=== PATIENT | female | born 2000 | race African-American/Black ===

== ENCOUNTER 2021-05-10 10:09 | Emergency (ER) | payer OTHER ==
[2021-05-10 10:32] LABS: BILIRUBIN,URINE NEGATIVE (NEGATIVE); GLUCOSE, URINE (UA) NEGATIVE (NEGATIVE); KETONES,URINE (UA) NEGATIVE (NEGATIVE); LEUKOCYTE ESTERASE, URINE NEGATIVE (NEGATIVE); NITRITE,URINE NEGATIVE (NEGATIVE); OCCULT BLOOD,URINE LARGE (NEGATIVE); PROTEIN,URINE NEGATIVE (NEGATIVE); UROBILINOGEN,URINE 0.2 (NORMAL) E.U./dL (NORMAL)
[2021-05-10 10:37] LABS: CLARITY,URINE CLEAR (CLEAR); HCG UR QUAL NEGATIVE
[2021-05-10 10:39] LABS: BASOPHILS % (AUTO) 0.5 %; EOSINOPHILS # (AUTO) 0.1 10^3/uL (0.0-0.7); EOSINOPHILS % (AUTO) 1.3 %; HCT - HEMATOCRIT 39.4 % (37.0-47.0); HGB - HEMOGLOBIN 12.9 g/dL (12.0-16.0); LYMPHOCYTES # (AUTO) 1.5 10^3/uL (1.5-3.5); LYMPHOCYTES % (AUTO) 39.7 %; MEAN CORPUSCULAR HEMOGLOBIN 30.5 pg (27.0-31.0); MEAN CORPUSCULAR HGB CONC 32.7 g/dL (32.0-36.0); MEAN CORPUSCULAR VOLUME 93.1 fL (81.0-99.0); MEAN PLATELET VOLUME 9.9 fL (7.9-10.8); MONOCYTES # (AUTO) 0.3 10^3/uL (0.0-1.0); MONOCYTES % (AUTO) 9.1 %; NEUTROPHILS # (AUTO) 1.8 10^3/uL (1.5-6.6); NEUTROPHILS % (AUTO) 49.1 %; PLT - PLATELET COUNT 239 10^3/uL (130-450); RED BLOOD COUNT 4.23 10^6/uL (4.20-5.40); RED CELL DISTRIBUTION WIDTH 13.7 % (12.0-15.0); WHITE BLOOD COUNT 3.8 x10^3/uL (4.8-10.8)
[2021-05-10 10:44] LABS: BACTERIA,URINE None Seen /HPF (None Seen); RBC,URINE 0-5 /HPF (0-5); SQUAMOUS EPITHELIAL CELL,UR RARE Squamous (<= Few); WBC,URINE 0-3 /HPF (0-5)
[2021-05-10 10:56] LABS: ALBUMIN 3.9 g/dL (3.2-5.5); ALBUMIN/GLOBULIN RATIO 1.4 (1.0-2.2); CALCIUM 8.8 mg/dL (8.5-10.3); CREATININE 0.8 mg/dL (0.4-1.0); POTASSIUM 4.3 mmol/L (3.5-5.0); TOTAL PROTEIN 6.7 g/dL (6.7-8.2)
[2021-05-10] MEDS ORDERED: MAG HYDROX/AL HYDROX/SIMETH 30 ML UDC PO STA (11:21)
[2021-05-10] MEDS ORDERED: LIDOCAINE VISCOUS 2% 15 ML UDC MM STA (11:21)
--- NOTE | 2021-05-10 11:25 | ED Physician Documentation ---
History of Present Illness - Stated complaint Stated Complaint: ABD PX/NAUSEA - Chief complaint Chief Complaint: Abd Pain - History obtained from History obtained from: Patient - Additonal information Additional information: The patient comes to the emergency department chief complaint of upper abdominal pain that occurs when she is on her period. She states that she previously just had a low abdominal cramps, but over the last couple months, she has noticed that she gets a deep, superior epigastric pain and nausea while on her period. She states that in between, she does not have any pain there at all and denies any nausea or pain in association with eating. She states her periods last a bit longer now, 7 days where it used to be 4 days. 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 The patient has been thinking about going off the control pills, because she thinks it may be partly responsible for her symptoms. The patient does use ibuprofen for her cramps, but states that the epigastric pain starts before she begins using ibuprofen. No other complaints at this time. Review of Systems Ten Systems: 10 systems reviewed and negative Constitutional: reports: Reviewed and negative Eyes: reports: Reviewed and negative Ears: reports: Reviewed and negative Nose: reports: Reviewed and negative Throat: reports: Reviewed and negative Cardiac: reports: Reviewed and negative Respiratory: reports: Reviewed and negative GI: reports: Abdominal Pain, Nausea, Vomiting : reports: Reviewed and negative Skin: reports: Reviewed and negative Musculoskeletal: reports: Reviewed and negative Neurologic: reports: Reviewed and negative Psychiatric: reports: Reviewed and negative Endocrine: reports: Reviewed and negative Immunocompromised: reports: Reviewed and negative PD PAST MEDICAL HISTORY - Past Medical History Past Medical History: Yes Cardiovascular: None Respiratory: None Neuro: None Endocrine/Autoimmune: None GI: None FERRY ENGINEER: None : None HEENT: None Psych: None Musculoskeletal: None Derm: None - Past Surgical History Past Surgical History: Yes /FERRY ENGINEER: Breast reduction - Present Medications Home Medications: Ambulatory Orders Medication Instructions Recorded Confirmed Levonorgestrel [Kyleena] 1 insert .ROUTE PRN PRN 05/10/21 05/10/21 Ondansetron Odt [Zofran] 4 mg TL Q6H PRN #10 tablet 05/10/21 - Allergies Allergies/Adverse Reactions: Allergies Allergy/AdvReac Type Severity Reaction Status Date / Time No Known Drug Allergies Allergy Verified 05/10/21 10:20 - Social History Does the pt smoke?: No Smoking Status: Never smoker PD ED PE NORMAL - Vitals Vital signs reviewed: Yes - General General: Alert and oriented X 3, No acute distress, Well developed/nourished - HEENT HEENT: Atraumatic, PERRL, EOMI, Moist mucous membranes - Cardiac Cardiac: RRR, No murmur, Strong equal pulses - Respiratory Respiratory: No respiratory distress, Clear bilaterally - Abdomen Abdomen: Soft, Non distended, Other (Epigastric tenderness, no rebound or guarding) - Derm Derm: Warm and dry - Extremities Extremities: No deformity - Neuro Neuro: Alert and oriented X 3 - Psych Psych: Normal mood, Normal affect Results - Vitals Vitals: Vital Signs - 24 hr 05/10/21 05/10/21 10:18 12:24 Temperature 37.1 C 37.0 C Heart Rate 85 86 Respiratory 19 18 Rate Blood Pressure 124/66 122/66 O2 Saturation 99 100 Oxygen O2 Source Room air - Labs Labs: Laboratory Tests 05/10/21 05/10/21 05/10/21 10:26 10:35 10:35 WBC 3.8 L RBC 4.23 Hgb 12.9 Hct 39.4 MCV 93.1 MCH 30.5 MCHC 32.7 RDW 13.7 Plt Count 239 MPV 9.9 Neut # (Auto) 1.8 Lymph # (Auto) 1.5 [place] # (Auto) 0.3 Eos # (Auto) 0.1 Baso # (Auto) 0.0 Absolute Nucleated RBC 0.00 Nucleated RBC % 0.0 Sodium 137 Potassium 4.3 Chloride 103 Carbon Dioxide 25 Anion Gap 9.0 BUN 13 Creatinine 0.8 Estimated GFR (MDRD) 109 Glucose 101 H Calcium 8.8 Total Bilirubin 1.0 AST 18 ALT 15 Alkaline Phosphatase 55 Total Protein 6.7 Albumin 3.9 Globulin 2.8 Albumin/Globulin Ratio 1.4 Lipase 36 Urine Color YELLOW Urine Clarity CLEAR Urine pH 6.0 Ur Specific [place] 1.025 Urine Protein NEGATIVE Urine Glucose (UA) NEGATIVE Urine Ketones NEGATIVE Urine Occult Blood LARGE H Urine Nitrite NEGATIVE Urine Bilirubin NEGATIVE Urine Urobilinogen 0.2 (NORMAL) Ur Leukocyte Esterase NEGATIVE Urine RBC 0-5 Urine WBC 0-3 Ur Squamous Epith Cells RARE Squamous Urine Bacteria None Seen Ur Microscopic Review INDICATED Urine Culture Comments NOT INDICATED Urine HCG, Qual NEGATIVE PD MEDICAL DECISION MAKING - ED course Complexity details: reviewed results, re-evaluated patient, considered differential, d/w patient ED course: The patient was treated symptomatically with a GI cocktail and laboratory studies were performed. The patient's labs were unremarkable, and I did not feel that emergent imaging was indicated today. We have discussed symptomatic management at home, as well as the usual indications for return. Departure - Departure Disposition: Home, Self Care Clinical Impression: Abdominal pain Qualifiers: Abdominal location: upper abdomen, unspecified Qualified Code(s): R10.10 - Upper abdominal pain, unspecified Condition: Stable Instructions: ED Abdominal Pain Female Non-Specific Abdominal Pain Prescriptions: Ondansetron Odt [Zofran] 4 mg TL Q6H PRN #10 tablet PRN Reason: Nausea / Vomiting Comments: Your labs look good. There is no evidence of any emergent pathology of your upper abdominal organs. It is not clear why you have begun to get upper abdominal pain with your periods, though it may be somewhat related to the nausea and some reflux of gastric contents. Please follow-up with your primary doctor and your tool crib attendant to discuss any further interventions. You may take [id number] Maalox and Zofran for nausea if needed. It is up to you whether you would like to stop your control pills. Discharge Date/Time: 05/10/21 12:48
[2021-05-10 12:47] VITALS: BP 122/66
== END 2021-05-10 12:48 | disposition home or self-care (01) ==
LOC: ED 10:09
DX: R10.13 Epigastric pain (principal)
CPT/HCPCS: 36415; 80053; 81001; 81025; 83690; 85025; 99282; 99283; A9270; 81003; 87086

== ENCOUNTER 2021-05-28 10:44 | Emergency (ER) | payer OTHER ==
[2021-05-28 11:03] VITALS: BP 110/65
[2021-05-28] MEDS ORDERED: predniSONE 20 MG TABLET PO STA (12:25)
[2021-05-28] MEDS ORDERED: CETIRIZINE 10 MG TABLET PO STA (12:25)
--- NOTE | 2021-05-28 12:37 | ED Physician Documentation ---
History of Present Illness - Stated complaint Stated Complaint: SKIN IRRITATION - Chief complaint Chief Complaint: Allergic Rx - History obtained from History obtained from: Patient - History of Present Illness Timing: Today Pain level max: 0 Pain level now: 0 - Additonal information Additional information: Patient is a 20-year-old female who presents to the emergency department stating she had a strawberry today and then developed itching over her entire body. Has not taken anything for this. Nothing makes it better or worse. No difficulty breathing, speaking or swallowing. Similar symptoms occurred last time she ate a strawberry. Review of Systems Constitutional: denies: Fever, Chills GI: denies: Vomiting, Diarrhea : denies: Now EGA Skin: denies: Rash Musculoskeletal: denies: Neck pain, Back pain PD PAST MEDICAL HISTORY - Past Medical History Cardiovascular: None Respiratory: None Neuro: None Endocrine/Autoimmune: None GI: None CASING TIER: None : None HEENT: None Psych: None Musculoskeletal: None Derm: None - Past Surgical History Past Surgical History: Yes /CASING TIER: Breast reduction - Present Medications Home Medications: Ambulatory Orders Medication Instructions Recorded Confirmed Levonorgestrel [Kyleena] 1 insert .ROUTE PRN PRN 05/10/21 05/10/21 Ondansetron Odt [Zofran] 4 mg TL Q6H PRN #10 tablet 05/10/21 predniSONE [Deltasone] 40 mg PO DAILY #6 tablet 05/28/21 - Allergies Allergies/Adverse Reactions: Allergies Allergy/AdvReac Type Severity Reaction Status Date / Time No Known Drug Allergies Allergy Verified 05/28/21 11:00 - Social History Does the pt smoke?: No Smoking Status: Never smoker PD ED PE NORMAL - Vitals Vital signs reviewed: Yes - General General: Alert and oriented X 3, No acute distress - HEENT HEENT: Moist mucous membranes, Other (Normal phonation. No stridor) - Neck Neck: Supple, no meningeal sign - Cardiac Cardiac: RRR - Respiratory Respiratory: No respiratory distress, Clear bilaterally - Abdomen Abdomen: Soft, Non tender, Non distended - Derm Derm: Warm and dry, No rash - Neuro Neuro: Alert and oriented X 3 Results - Vitals Vitals: Vital Signs - 24 hr 05/28/21 11:00 Temperature 36.8 C Heart Rate 67 Respiratory 18 Rate Blood Pressure 110/65 O2 Saturation 98 Oxygen O2 Source Room air PD MEDICAL DECISION MAKING - ED course Complexity details: considered differential, d/w patient ED course: 20-year-old female with diffuse itching after eating a strawberry. Given steroids and Zyrtec. No evidence of anaphylaxis. No airway involvement. Normal phonation. We will place on steroids for home and have her avoid strawberry-containing foods. Patient counseled regarding signs and symptoms for which I believe and urgent re-evaluation would be necessary. Patient with good understanding of and agreement to plan and is comfortable going home at this time This document was made in part using voice recognition software. While efforts are made to proofread this document, sound alike and grammatical errors may occur. Departure - Departure Disposition: 01 Home, Self Care Clinical Impression: Allergic reaction Qualifiers: Encounter type: initial encounter Qualified Code(s): T78.40XA - Allergy, unspecified, initial encounter Condition: Good Instructions: ED Allergic Reaction General Other Follow-Up: DEB MCGILL MD [Primary Care Provider] - Prescriptions: predniSONE [Deltasone] 40 mg PO DAILY #6 tablet Comments: We will place her on prednisone for 3 days up with the allergic reaction. You can take Zyrtec or Claritin as well. Please return if you worsen. Please avoid any strawberries or strawberry-containing foods.
== END 2021-05-28 12:42 | disposition home or self-care (01) ==
LOC: ED 10:44
DX: T78.40XA Allergy, unspecified, initial encounter (principal)
CPT/HCPCS: 99282; A9270; J7512

== ENCOUNTER 2022-03-22 08:00 | Outpatient (CLI) | payer OTHER ==
[2022-03-22 23:08] LABS: BACTERIAL VAGINOSIS DNA NEGATIVE (NEGATIVE); CANDIDA GLABRATA DNA NEGATIVE (NEGATIVE); CANDIDA GROUP DNA POSITIVE (NEGATIVE); CANDIDA KRUSEI DNA NEGATIVE (NEGATIVE); TRICHOMONAS VAGINALIS DNA NEGATIVE (NEGATIVE)
[2022-03-23 00:28] LABS: CHLAMYDIA TRACHOMATIS DNA NEGATIVE (NEGATIVE); NEISSERIA GONORRHOEAE DNA NEGATIVE (NEGATIVE)
== END 2022-03-22 23:59 | disposition home or self-care (01) ==
LOC: LAB.N 08:00
PROVIDERS: ATTEND Physician Assistant
DX: R30.0 Dysuria (principal)
CPT/HCPCS: 81514; 87491; 87591; 87661

== ENCOUNTER 2022-04-20 15:36 | Emergency (ER) | payer OTHER ==
[2022-04-20] MEDS ORDERED: METOCLOPRAMIDE 10 MG/2 ML VIAL IVP STA (17:02)
[2022-04-20] MEDS ORDERED: diphenhydrAMINE INJ 50 MG/ML VIAL IVP STA (17:02)
--- NOTE | 2022-04-20 17:04 | ED Physician Documentation ---
PD HPI SYNCOPE - Stated complaint Stated Complaint: MIGRAINE - Chief complaint Chief Complaint: Neuro - History obtained from History obtained from: Patient - Additional information Additional information: 21-year-old woman otherwise healthy. No history of primary headache disorder. 5 days ago she was in her usual state of health at home walking around and felt lightheaded and then passed out presumably hitting her head on the ground. She has had a headache ever since. Usually behind the left eye. Associated with light sensitivity but no nausea. No other injuries. As far as the passing out episode she thought it was because she had just finished her menses. Review of Systems Constitutional: denies: Fever, Chills Throat: denies: Sore throat Cardiac: denies: Chest pain / pressure, Palpitations Respiratory: denies: Dyspnea, Cough GI: denies: Abdominal Pain PD PAST MEDICAL HISTORY - Past Medical History Cardiovascular: None Respiratory: None Neuro: None Endocrine/Autoimmune: None GI: None TWISTER OPERATOR: None : None HEENT: None Psych: None Musculoskeletal: None Derm: None - Past Surgical History Past Surgical History: Yes /TWISTER OPERATOR: Breast reduction - Present Medications Home Medications: Ambulatory Orders Medication Instructions Recorded Confirmed Propranolol [Inderal] 10 mg PO DAILY PRN 04/20/22 04/20/22 Sertraline [Zoloft] 25 mg PO DAILY 04/20/22 04/20/22 - Allergies Allergies/Adverse Reactions: Allergies Allergy/AdvReac Type Severity Reaction Status Date / Time No Known Drug Allergies Allergy Verified 04/20/22 15:43 - Social History Does the pt smoke?: No Smoking Status: Never smoker PD ED PE NORMAL - Vitals Vital signs reviewed: Yes - General General: Alert and oriented X 3, Other (Appears uncomfortable and light- sensitive) - HEENT HEENT: PERRL, EOMI - Neck Neck: Supple, no meningeal sign, No bony TTP - Cardiac Cardiac: RRR, No murmur - Respiratory Respiratory: No respiratory distress, Clear bilaterally - Abdomen Abdomen: Non tender - Neuro Neuro: Alert and oriented X 3, cocoa bean roaster 2-12 intact, No motor deficit, No sensory deficit, Normal speech Eye Opening: Spontaneous Motor: Obeys Commands Verbal: Oriented GCS Score: 15 Results - Vitals Vitals: Vital Signs - 24 hr 04/20/22 15:39 Temperature 36.5 C Heart Rate 70 Respiratory 16 Rate Blood Pressure 109/66 O2 Saturation 99 Oxygen O2 Source Room air - EKG (time done) 1737 Rate: Rate (enter#) (65) Rhythm: NSR Edwards: Normal Intervals: Normal NM QRS: Normal Ischemia: Normal ST segments - Labs Labs: Laboratory Tests 04/20/22 04/20/22 04/20/22 17:11 17:11 17:30 WBC 4.6 L RBC 4.38 Hgb 13.0 Hct 40.6 MCV 92.7 MCH 29.7 MCHC 32.0 RDW 14.3 Plt Count 268 MPV 10.2 Neut # (Auto) 2.0 Lymph # (Auto) 1.9 [place] # (Auto) 0.5 Eos # (Auto) 0.2 Baso # (Auto) 0.0 Absolute Nucleated RBC 0.00 Nucleated RBC % 0.0 Sodium 138 Potassium 3.7 Chloride 103 Carbon Dioxide 27 Anion Gap 8.0 BUN 13 Creatinine 0.8 Estimated GFR (MDRD) 108 Glucose 92 Calcium 9.4 Total Bilirubin 0.3 AST 26 ALT 22 Alkaline Phosphatase 60 Total Protein 7.3 Albumin 4.1 Globulin 3.2 Albumin/Globulin Ratio 1.3 Urine HCG, Qual NEGATIVE - Rads (name of study) CT of the head without contrast is unremarkable Radiology: Final report received, EMP read indepedently PD Medical Decision Making - ED course ED course: 21-year-old woman with headache that sounds migrainous but it was associated with a head injury. The headache is severe. It was completely resolved after the administration of Benadryl and Reglan. Given the syncope and head injury a work-up was done without pertinent positive findings. Departure - Departure Disposition: 01 Home, Self Care Clinical Impression: Headache Qualifiers: Headache type: unspecified Headache chronicity pattern: acute headache Intractability: not intractable Qualified Code(s): R51.9 - Headache, unspecified Syncope Qualifiers: Syncope type: unspecified Qualified Code(s): R55 - Syncope and collapse Condition: Good Record reviewed to determine appropriate education?: Yes Instructions: ED Headache Migraine Comments: CT of the head was normal as were your labs and EKG. Thankfully you are feeling better. Call your doctor to arrange a follow-up appointment, make the next available appointment. In the interim, return anytime if worse or if new symptoms develop.
[2022-04-20 17:16] LABS: BASOPHILS % (AUTO) 0.9 %; EOSINOPHILS # (AUTO) 0.2 10^3/uL (0.0-0.7); EOSINOPHILS % (AUTO) 3.5 %; HCT - HEMATOCRIT 40.6 % (37.0-47.0); LYMPHOCYTES # (AUTO) 1.9 10^3/uL (1.5-3.5); LYMPHOCYTES % (AUTO) 41.4 %; MEAN CORPUSCULAR HEMOGLOBIN 29.7 pg (27.0-31.0); MEAN CORPUSCULAR VOLUME 92.7 fL (81.0-99.0); MEAN PLATELET VOLUME 10.2 fL (7.9-10.8); MONOCYTES # (AUTO) 0.5 10^3/uL (0.0-1.0); MONOCYTES % (AUTO) 11.8 %; NEUTROPHILS % (AUTO) 42.4 %; PLT - PLATELET COUNT 268 10^3/uL (130-450); RED BLOOD COUNT 4.38 10^6/uL (4.20-5.40); RED CELL DISTRIBUTION WIDTH 14.3 % (12.0-15.0); WHITE BLOOD COUNT 4.6 x10^3/uL (4.8-10.8)
[2022-04-20 17:28] LABS: ALBUMIN 4.1 g/dL (3.2-5.5); ALBUMIN/GLOBULIN RATIO 1.3 (1.0-2.2); BILIRUBIN,TOTAL 0.3 mg/dL (0.2-1.0); CALCIUM 9.4 mg/dL (8.5-10.3); CREATININE 0.8 mg/dL (0.4-1.0); POTASSIUM 3.7 mmol/L (3.5-5.0); TOTAL PROTEIN 7.3 g/dL (6.7-8.2)
--- NOTE | 2022-04-20 17:32 | CT Report ---
PROCEDURE: HEAD WO INDICATIONS: post trauma BROOKS TECHNIQUE: Noncontrast 4.5 mm thick angled axial sections acquired from the foramen magnum to the vertex. For r adiation dose reduction, the following was used: automated exposure control, adjustment of mA and/or kV according to patient size. COMPARISON: None. FINDINGS: Image quality: Excellent. CSF spaces: Basal cisterns are patent. No extra-axial fluid collections. Ventricles are normal in size and shape. Brain: No midline shift. No intracranial masses or hemorrhage. Luke-white matter interface is norm al. Skull and face: Calvarium and visualized facial bones are intact, without suspicious lesions. Sinuses: Visualized sinuses and mastoids are clear. IMPRESSION: No acute intracranial abnormality. Reviewed by: Fiorella Godfrey MD on 04/20/2022 5:30 PM PST Approved by: Fiorella Godfrey MD on 04/20/2022 5:30 PM [facility] Station ID: [id number]
[2022-04-20 17:59] LABS: HCG UR QUAL NEGATIVE
[2022-04-20 18:44] VITALS: BP 114/78
== END 2022-04-20 18:44 | disposition home or self-care (01) ==
LOC: ED 15:36
DX: R51.9 Headache, unspecified (principal); R55 Syncope and collapse
CPT/HCPCS: 36415; 70450; 80053; 81025; 85025; 93005; 96374; 99284; J1200; J2765

== ENCOUNTER 2022-05-04 10:17 | Emergency (ER) | payer OTHER ==
[2022-05-04 10:39] LABS: BILIRUBIN,URINE NEGATIVE (NEGATIVE); GLUCOSE, URINE (UA) NEGATIVE (NEGATIVE); KETONES,URINE (UA) NEGATIVE (NEGATIVE); LEUKOCYTE ESTERASE, URINE NEGATIVE (NEGATIVE); NITRITE,URINE NEGATIVE (NEGATIVE); OCCULT BLOOD,URINE TRACE-INTA (NEGATIVE); PROTEIN,URINE NEGATIVE (NEGATIVE); UROBILINOGEN,URINE 0.2 (NORMAL) E.U./dL (NORMAL)
[2022-05-04 10:40] LABS: CLARITY,URINE HAZY (CLEAR); HCG UR QUAL NEGATIVE
[2022-05-04 10:44] LABS: BASOPHILS % (AUTO) 0.4 %; EOSINOPHILS # (AUTO) 0.2 10^3/uL (0.0-0.7); EOSINOPHILS % (AUTO) 4.4 %; HCT - HEMATOCRIT 40.6 % (37.0-47.0); HGB - HEMOGLOBIN 12.9 g/dL (12.0-16.0); LYMPHOCYTES # (AUTO) 0.7 10^3/uL (1.5-3.5); LYMPHOCYTES % (AUTO) 14.6 %; MEAN CORPUSCULAR HEMOGLOBIN 29.3 pg (27.0-31.0); MEAN CORPUSCULAR HGB CONC 31.8 g/dL (32.0-36.0); MEAN CORPUSCULAR VOLUME 92.3 fL (81.0-99.0); MEAN PLATELET VOLUME 10.2 fL (7.9-10.8); MONOCYTES # (AUTO) 0.6 10^3/uL (0.0-1.0); MONOCYTES % (AUTO) 11.8 %; NEUTROPHILS # (AUTO) 3.4 10^3/uL (1.5-6.6); NEUTROPHILS % (AUTO) 68.6 %; PLT - PLATELET COUNT 219 10^3/uL (130-450); RED CELL DISTRIBUTION WIDTH 14.6 % (12.0-15.0)
[2022-05-04 10:46] LABS: BACTERIA,URINE Few /HPF (None Seen); RBC,URINE 0-5 /HPF (0-5); SQUAMOUS EPITHELIAL CELL,UR MANY Squamous (<= Few); WBC,URINE 0-3 /HPF (0-5)
[2022-05-04 10:57] LABS: ALBUMIN 4.1 g/dL (3.2-5.5); ALBUMIN/GLOBULIN RATIO 1.3 (1.0-2.2); BILIRUBIN,TOTAL 0.5 mg/dL (0.2-1.0); CALCIUM 9.3 mg/dL (8.5-10.3); CREATININE 0.7 mg/dL (0.4-1.0); POTASSIUM 3.7 mmol/L (3.5-5.0); TOTAL PROTEIN 7.3 g/dL (6.7-8.2)
[2022-05-04] MEDS ORDERED: SODIUM CHLORIDE 0.9% 1,000 ML IV STA (13:24)
[2022-05-04] MEDS ORDERED: ONDANSETRON 4 MG/2 ML VIAL IVP STA (13:24)
--- NOTE | 2022-05-04 13:26 | ED Physician Documentation ---
History of Present Illness - Stated complaint Stated Complaint: ABD PX - Chief complaint Chief Complaint: Abd Pain - Additonal information Additional information: History obtained from patient. Reliable historian. 21-year-old female presents to the emergency department for evaluation of upper epigastric abdominal pain that radiates down to her lower pelvic region. Symptoms began yesterday. She denies fevers or vomiting. She denies dysuria but states that anytime she defecates or micturates that she has intense cramping throughout her abdomen. She is not on her menstrual cycle. No pertinent past surgical history. Past medical history most significant for anxiety and depression for which she takes Lexapro and propanolol. PD PAST MEDICAL HISTORY - Past Medical History Cardiovascular: None Respiratory: None Neuro: None Endocrine/Autoimmune: None GI: None SAP PP CONSULTANT: None : None HEENT: None Psych: None Musculoskeletal: None Derm: None - Past Surgical History Past Surgical History: Yes /SAP PP CONSULTANT: Breast reduction - Present Medications Home Medications: Ambulatory Orders Medication Instructions Recorded Confirmed Propranolol [Inderal] 10 mg PO DAILY PRN 04/20/22 05/04/22 Sertraline [Zoloft] 25 mg PO DAILY 04/20/22 05/04/22 - Allergies Allergies/Adverse Reactions: Allergies Allergy/AdvReac Type Severity Reaction Status Date / Time No Known Drug Allergies Allergy Verified 05/04/22 10:24 - Social History Does the pt smoke?: No Smoking Status: Never smoker PD ED PE NORMAL - General General: Alert and oriented X 3, No acute distress - HEENT HEENT: Atraumatic, Moist mucous membranes - Neck Neck: Supple, no meningeal sign, No adenopathy - Cardiac Cardiac: RRR, No murmur - Respiratory Respiratory: No respiratory distress, Clear bilaterally - Abdomen Abdomen: Normal bowel sounds, Soft, Non tender (Focal tenderness in the right lower quadrant of the abdomen without guarding or rebound. Negative Bonilla's. No flank or CVA tenderness) - Derm Derm: Normal color, Warm and dry - Extremities Extremities: No deformity, No tenderness to palpate, Normal ROM s pain - Neuro Neuro: Alert and oriented X 3, c t tech 2-12 intact Eye Opening: Spontaneous Motor: Obeys Commands Verbal: Oriented GCS Score: 15 Results - Vitals Vitals: Vital Signs - 24 hr 05/04/22 05/04/22 10:21 14:24 Temperature 36.7 C 36.5 C Heart Rate 87 69 Respiratory 14 14 Rate Blood Pressure 120/79 128/64 O2 Saturation 100 100 Oxygen O2 Source Room air - Labs Labs: Laboratory Tests 05/04/22 05/04/22 05/04/22 10:26 10:37 10:37 WBC 5.0 RBC 4.40 Hgb 12.9 Hct 40.6 MCV 92.3 MCH 29.3 MCHC 31.8 L RDW 14.6 Plt Count 219 MPV 10.2 Neut # (Auto) 3.4 Lymph # (Auto) 0.7 L [place] # (Auto) 0.6 Eos # (Auto) 0.2 Baso # (Auto) 0.0 Absolute Nucleated RBC 0.00 Nucleated RBC % 0.0 Sodium 134 L Potassium 3.7 Chloride 100 L Carbon Dioxide 26 Anion Gap 8.0 BUN 11 Creatinine 0.7 Estimated GFR (MDRD) 126 Glucose 86 Calcium 9.3 Total Bilirubin 0.5 AST 17 ALT 16 Alkaline Phosphatase 55 Total Protein 7.3 Albumin 4.1 Globulin 3.2 Albumin/Globulin Ratio 1.3 Lipase 39 Urine Color YELLOW Urine Clarity HAZY Urine pH 7.0 Ur Specific [place] 1.020 Urine Protein NEGATIVE Urine Glucose (UA) NEGATIVE Urine Ketones NEGATIVE Urine Occult Blood TRACE-INTA Urine Nitrite NEGATIVE Urine Bilirubin NEGATIVE Urine Urobilinogen 0.2 (NORMAL) Ur Leukocyte Esterase NEGATIVE Urine RBC 0-5 Urine WBC 0-3 Ur Squamous Epith Cells MANY Squamous H Urine Bacteria Few Ur Microscopic Review INDICATED Urine Culture Comments NOT INDICATED Urine HCG, Qual NEGATIVE - Rads (name of study) Ct abd w Radiology: Final report received (Suggestion of right ovarian cyst measures 3.8 x 3.7 cm in size. Ultrasound pelvis can be done as follow-up. No bowel obstruction or abnormal wall thickening. Normal appendix. No free fluid or free air. Mild constipation) PD Medical Decision Making - ED course Complexity details: reviewed results, re-evaluated patient, considered differential, d/w patient ED course: 21-year-old female presents emergency department for evaluation of 2 days of upper abdominal pain that she reports radiates to her lower abdomen. There have been no fevers or vomiting. Here in the emergency department she appears remarkably well. No fevers or worrisome vital sign abnormalities. No tachycardia or hypotension. On exam she had some mild tenderness in the upper abdomen as well as the right lower pelvic region without guarding or rebound. Nonperitoneal exam. A CBC and electrolytes were obtained. My interpretation is that there is no acute worrisome findings. Her urinalysis is not consistent with infection. She is not . However given the mild tenderness in the right lower quadrant a CT of the abdomen was completed to rule out acute appendicitis, findings of bowel obstruction etc. The CT scan shows moderate stool within the ascending and transverse colon. There is also a question of a right ovarian cyst. I have given the patient some Toradol IV and on repeat exam Her symptoms are markedly improved. I discussed the CT imaging findings with the patient. She is advised to begin taking MiraLAX and Colace for the constipation. I have also asked her to follow closely with [facility] in order to obtain the appropriate outpatient ultrasound for further evaluation of what appears to be a right ovarian cyst. Clinically her history and presentation is not consistent with an ovarian torsion. I have advised the patient to use Tylenol or ibuprofen [id number] for analgesia. We did discuss the usual emergent return precautions. Patient is discharged home in stable condition Departure - Departure Disposition: 01 Home, Self Care Clinical Impression: Right ovarian cyst Constipation Qualifiers: Constipation type: unspecified constipation type Qualified Code(s): K59.00 - Constipation, unspecified Condition: Stable Record reviewed to determine appropriate education?: Yes Instructions: ED Cyst Ovarian, ED Constipation Comments: You came to the emergency department today because for few days you have had some pain in your upper abdomen as Well as her lower pelvic region. Your labs today here in the emergency department are essentially normal. The CT of your abdomen shows that you have a fair amount of constipation especially within your ascending and transverse colon. This could cause some of the upper abdominal discomfort you feel. The CT also shows that you most likely have a 3.7 cm cyst on your right ovary. To know what this is for certain, you will need an outpatient ultrasound. Please speak to [facility] to request this be ordered. In general we recommend that you take 600 mg of ibuprofen with food 2-3 times a day or alternate with Tylenol 500 mg. If you find that your lower abdominal pain is worsening, you have fevers, uncontrolled vomiting you should return immediately to the ER.
[2022-05-04] MEDS ORDERED: iohexoL-300 100 ML VIAL ONE (13:28)
--- NOTE | 2022-05-04 14:27 | CT Report ---
PROCEDURE: ABDOMEN/PELVIS W INDICATIONS: epigastric pain radiating to lower abdomen CONTRAST: 100ml Omnipaque 300 TECHNIQUE: After the administration of IV contrast, 5 mm thick sections acquired from the diaphragms to the symp hysis. 5 mm thick coronal and sagittal reformats were acquired. For radiation dose reduction, the f ollowing was used: automated exposure control, adjustment of mA and/or kV according to patient size. COMPARISON: None. FINDINGS: Image quality: Excellent. ABDOMEN: Lung bases: Lung bases are clear. Heart size is normal. Solid organs: Liver and spleen are normal in size and enhancement. Gallbladder is contracted and sh ows no gross abnormality. Biliary system is non dilated. Pancreas enhances normally. No adrenal no dules. Kidneys demonstrate normal size and enhancement, without hydronephrosis. Peritoneum and bowel: Bowel loops demonstrate normal wall thickness and caliber. Appendix is visual ized and is within normal limits. Mild fecal stasis in ascending colon and transverse colon is seen. No free fluid or air. Nodes and vessels: No retroperitoneal or mesenteric adenopathy by size criteria. Aorta and inferior vena cava are normal in size. Miscellaneous: No ventral hernias. PELVIS: Genitourinary: Bladder wall thickness is normal. Miscellaneous: No inguinal hernias or adenopathy. No gross abnormality is seen in uterus and left o vary. Suggestion of right ovarian cyst measures 3.8 x 3.7 cm in size is seen 3 image 66. Bones: No suspicious bony lesions. No vertebral body compression fractures. IMPRESSION: 1. Suggestion of right ovarian cyst measures 3.8 x 3.7 cm in size. Ultrasound of pelvis can be done a s follow-up. 2. No bowel obstruction or abnormal bowel wall thickening. Normal appendix. No free fluid of free air . Mild constipation. Reviewed by: Arvin Phillips MD on 05/04/2022 2:25 PM PST Approved by: Arvin Phililps MD on 05/04/2022 2:25 PM PST Station ID: [id number]
[2022-05-04 14:29] VITALS: BP 128/64
[2022-05-04] MEDS ORDERED: KETOROLAC 30 MG/ML VIAL IVP STA (14:31)
[2022-05-04] MEDS ORDERED: iohexoL-300 100 ML VIAL IVP ONE (16:50)
== END 2022-05-04 15:15 | disposition home or self-care (01) ==
LOC: ED 10:17
DX: K59.00 Constipation, unspecified (principal); N83.201 Unspecified ovarian cyst, right side
CPT/HCPCS: 36415; 74177; 80053; 81001; 81025; 83690; 85025; 96361; 96374; 96375; 99284; Q9967; 81003; 87086

== ENCOUNTER 2022-05-05 09:15 | Emergency (ER) | payer OTHER ==
--- NOTE | 2022-05-05 10:57 | XRAY Report ---
PROCEDURE: Chest 1 View X-Ray INDICATIONS: hemoptysis TECHNIQUE: One view of the chest was acquired. COMPARISON: None. FINDINGS: Surgical changes and devices: None. Lungs and pleura: No pleural effusions or pneumothorax. Lungs are clear. Mediastinum: Mediastinal contours appear normal. Heart size is normal. Bones and chest wall: No suspicious bony lesions. Overlying soft tissues appear unremarkable. IMPRESSION: No acute cardiopulmonary abnormality. Reviewed by: Alonzo Ireland MD on 05/05/2022 10:56 AM [facility] Approved by: Alonzo Ireland MD on 05/05/2022 10:56 AM [facility] Station ID: [id number]
--- NOTE | 2022-05-05 11:32 | ED Physician Documentation ---
History of Present Illness - Stated complaint Stated Complaint: COUGHING BLOOD - Chief complaint Chief Complaint: Resp - History obtained from History obtained from: Patient - Additonal information Additional information: The patient returns the emergency department today after being seen yesterday, with chief complaint of blood-streaked mucus when she coughed. The patient states it only happened once this morning. She coughed earlier and had some brownish discoloration but says that when she noticed the red streak in the mucus, she called her mother, who told her she should "get to the ER". The patient states is a fairly small amount of mucus and that it is a small streak of blood. She has not had any epistaxis. She has been coughing for about the last week. She denies any shortness of breath. She was seen yesterday for an abdominal discomfort work-up and felt to have GERD. The patient reports no new symptoms otherwise. Review of Systems Constitutional: reports: Reviewed and negative Eyes: reports: Reviewed and negative Ears: reports: Reviewed and negative Nose: reports: Reviewed and negative Throat: reports: Reviewed and negative Cardiac: reports: Reviewed and negative Respiratory: reports: Cough, Hemoptysis GI: reports: Reviewed and negative : reports: Reviewed and negative Skin: reports: Reviewed and negative Musculoskeletal: reports: Reviewed and negative Neurologic: reports: Reviewed and negative Psychiatric: reports: Reviewed and negative Endocrine: reports: Reviewed and negative Immunocompromised: reports: Reviewed and negative PD PAST MEDICAL HISTORY - Past Medical History Cardiovascular: None Respiratory: None Neuro: None Endocrine/Autoimmune: None GI: None 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 : 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 HEENT: None Psych: None Musculoskeletal: None Derm: None - Past Surgical History 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 - Present Medications Home Medications: Ambulatory Orders Medication Instructions Recorded Confirmed Propranolol [Inderal] 10 mg PO DAILY PRN 04/20/22 05/04/22 Sertraline [Zoloft] 25 mg PO DAILY 04/20/22 05/04/22 - Allergies Allergies/Adverse Reactions: Allergies Allergy/AdvReac Type Severity Reaction Status Date / Time No Known Drug Allergies Allergy Verified 05/04/22 10:24 - Social History Does the pt smoke?: No Smoking Status: Never smoker PD ED PE NORMAL - Vitals Vital signs reviewed: Yes - General General: Alert and oriented X 3, No acute distress, Well developed/nourished - HEENT HEENT: Atraumatic, PERRL, EOMI, Moist mucous membranes, Pharynx benign (No bloody residue), Other (No epistaxis, old or new) - Neck Neck: Supple, no meningeal sign - Cardiac Cardiac: RRR, No murmur, Strong equal pulses - Respiratory Respiratory: No respiratory distress, Clear bilaterally - Abdomen Abdomen: Soft, Non tender, Non distended - Derm Derm: Normal color, Warm and dry, No rash - Extremities Extremities: No deformity - Neuro Neuro: Alert and oriented X 3 - Psych Psych: Normal mood, Normal affect Results - Vitals Vitals: Vital Signs - 24 hr 05/05/22 05/05/22 09:25 11:49 Temperature 37.2 C 37.1 C Heart Rate 84 81 Respiratory 18 16 Rate Blood Pressure 123/69 122/65 O2 Saturation 100 99 Oxygen O2 Source Room air - Rads (name of study) Chest x-ray Radiology: Final report received, See rad report (Unremarkable) PD Medical Decision Making - ED course Complexity details: reviewed results, re-evaluated patient, considered differential, d/w patient ED course: I discussed with the patient that her chest x-ray, which has been ordered and reviewed by me and also reviewed by the radiologist, is negative. The patient is reporting extremely minor hemoptysis, and has only had a single episode. Her exam is benign and I do not feel further emergent work-up or intervention is indicated. We have discussed the principles of symptomatic management at home, as well as the usual indications for follow-up and return. Departure - Departure Disposition: 01 Home, Self Care Clinical Impression: Hemoptysis Upper respiratory tract infection Qualifiers: URI type: unspecified viral URI Qualified Code(s): J06.9 - Acute upper respiratory infection, unspecified Condition: Stable Instructions: ED Viral Syndrome Comments: Your lung exam, heart exam, and chest x-ray all look good. The blood in your sputum that you are reporting is most likely due to either a little bit of blood from your nose leaking down in the mucus into the back your throat at night, or from a little bit of "roughing up" of the lining of your throat from the coughing. This is very common when you have congestion and a cough, and generally, the bleeding is minimal and will resolve on its own. There is no evidence of major infection or a tumor or any other serious cause of your bleeding. There is no evidence of continued bleeding either from your throat or your nose. You may follow-up with your primary doctor as needed. You may treat your symptoms with both the antiallergy medication to treat your underlying allergies, as well as perhaps some nasal spray and an [id number] cough agent for the cold that you most likely have. Discharge Date/Time: 05/05/22 11:49
[2022-05-05 11:51] VITALS: BP 122/65
== END 2022-05-05 11:49 | disposition home or self-care (01) ==
LOC: ED 09:15
DX: R04.2 Hemoptysis (principal); J06.9 Acute upper respiratory infection, unspecified
CPT/HCPCS: 99282; 99283

== ENCOUNTER 2022-10-21 07:39 | Emergency (ER) | payer OTHER ==
--- NOTE | 2022-10-21 07:47 | ED Physician Documentation ---
PD HPI LOWER EXT INJURY - Stated complaint Stated Complaint: LT TOE PX - History obtained from History obtained from: Patient - History of Present Illness PD HPI LOW EXT INJURY LOCATION: Left, Toe (great) Type of injury: Blunt / blow (she stubbed her toe 2 days ago and still hurting.) Where injury occurred: Home Timing - onset: How many days ago (2) Worsened by: Moving, Palpating Associated symptoms: No: Numbness, Tingling Review of Systems Skin: denies: Abrasion (s), Laceration (s) PD PAST MEDICAL HISTORY - Past Medical History Cardiovascular: None Respiratory: None Neuro: None Endocrine/Autoimmune: None GI: None CONTRACTING 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: 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 : None HEENT: None Psych: None Musculoskeletal: None Derm: None - Past Surgical History 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: Breast 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 - Present Medications Home Medications: Ambulatory Orders Medication Instructions Recorded Confirmed Propranolol [Inderal] 10 mg PO DAILY PRN 04/20/22 10/21/22 Sertraline [Zoloft] 25 mg PO DAILY 04/20/22 10/21/22 traZODone [Desyrel] 50 mg PO HS PRN 10/21/22 10/21/22 - Allergies Allergies/Adverse Reactions: Allergies Allergy/AdvReac Type Severity Reaction Status Date / Time No Known Drug Allergies Allergy Verified 10/21/22 07:47 - Social History Does the pt smoke?: No Smoking Status: Never smoker PD ED PE NORMAL - Vitals Vital signs reviewed: Yes - General General: Alert and oriented X 3, No acute distress, Well developed/nourished - Derm Derm: Normal color, Warm and dry - Extremities Extremities: Other (left great toe with tenderness at base and IP area. No noted deformity. Good color and cap refill at the tip. ) - Neuro Neuro: No motor deficit, No sensory deficit Results - Vitals Vitals: Oxygen O2 Source Room air - Rads (name of study) toe left Relevant Findings:: Prelim report reviewed, EMP independent interpretation of test (no fractures) PD Medical Decision Making - ED course Complexity details: reviewed results, considered differential (stubbed toe forcefully and stil hurting. Fracture vs contusion/sprain. Xray obtained and is neg for fracture. ), d/w patient Departure - Departure Disposition: 01 Home, Self Care Clinical Impression: Toe sprain, Injury due to impact of moving subject with stationary object Condition: Stable Record reviewed to determine appropriate education?: Yes Instructions: ED Sprain Toe Comments: No fracture seen on your x-ray. Presume some spraining of the ligaments or inflammation of the joint. This should improve over several more days to a week. Use the orthopedic shoe to reduce flexion at the toe and ball of the foot. This will allow easier on and off as well compared to a boot. Minimal walking and activity over the next several days. Ibuprofen/Motrin 2 or 3 times daily for the next several days to week. Recheck if not improved within the next week. Forms: Activity restrictions Discharge Date/Time: 10/21/22 09:07
[2022-10-21 07:48] VITALS: BP 113/61
--- NOTE | 2022-10-21 08:54 | XRAY Report ---
PROCEDURE: Toe(s) LT INDICATIONS: toe injury struck on furniture TECHNIQUE: 3 views of the first toe(s) acquired. COMPARISON: None FINDINGS: Bones: No fractures or dislocations. No suspicious bony lesions. Soft tissues: No suspicious soft tissue densities. IMPRESSION: No displaced fracture. If there remains a high clinical concern, consider immobilization and repeat r adiographs in 10-14 days. Reviewed by: Curtis Ramsay on 10/21/2022 8:52 AM PDT Approved by: Curtis Ramsay on 10/21/2022 8:52 AM PDT Station ID: [id number]
== END 2022-10-21 09:07 | disposition home or self-care (01) ==
LOC: ED 07:39
DX: S93.502A Unspecified sprain of left great toe, initial encounter (principal); W22.09XA Striking against other stationary object, initial encounter
CPT/HCPCS: 73660; 99283

== ENCOUNTER 2023-03-07 09:18 | Emergency (ER) | payer OTHER ==
[2023-03-07 09:34] VITALS: O2SAT 100
[2023-03-07] MEDS ORDERED: SODIUM CHLORIDE 0.9% 1,000 ML IV STA (09:39)
[2023-03-07] MEDS ORDERED: METOCLOPRAMIDE 10 MG/2 ML VIAL IVP STA (09:39)
[2023-03-07] MEDS ORDERED: diphenhydrAMINE INJ 50 MG/ML VIAL IVP STA (09:39)
[2023-03-07] MEDS ORDERED: KETOROLAC 30 MG/ML VIAL IVP STA (09:39)
--- NOTE | 2023-03-07 10:57 | ED Physician Documentation ---
PD HPI HEADACHE - Stated complaint Stated Complaint: HEAD PX LT SIDE - Chief complaint Chief Complaint: Neuro - History obtained from History obtained from: Patient - Additional information Additional information: Patient is a 22-year-old female presenting for evaluation of left sided headache that has been present for 1 week. Patient states that it started after she excellently hit herself in this area with a bottle From a carbonated drink. She does not take a blood thinner. She does have a history of migraines in the past though its been a long time. She has been using Excedrin without any improvement. She reports associated photophobia and nausea. No fever, cough or congestion. No chest pain or difficulty breathing. No visual deficits Or eye irritation. 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 - Present Medications Home Medications: Ambulatory Orders Medication Instructions Recorded Confirmed Propranolol [Inderal] 10 mg PO DAILY PRN 04/20/22 03/07/23 Sertraline [Zoloft] 25 mg PO DAILY 04/20/22 03/07/23 traZODone [Desyrel] 50 mg PO HS PRN 10/21/22 03/07/23 - Allergies Allergies/Adverse Reactions: Allergies Allergy/AdvReac Type Severity Reaction Status Date / Time strawberry Allergy Anaphylaxis Verified 03/07/23 09:31 - Social History Does the pt smoke?: No Smoking Status: Never smoker Does the pt drink ETOH?: Yes Does the pt have substance abuse?: No - Immunizations Immunizations are current?: Yes PD ED PE NORMAL - General General: Alert and oriented X 3, No acute distress, Well developed/nourished - HEENT HEENT: Atraumatic, PERRL, EOMI, Moist mucous membranes, Pharynx benign - Neck Neck: Supple, no meningeal sign, No bony TTP - Cardiac Cardiac: RRR, Strong equal pulses - Respiratory Respiratory: No respiratory distress, Clear bilaterally - Abdomen Abdomen: Soft, Non tender - Derm Derm: Warm and dry - Neuro Neuro: Alert and oriented X 3, 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 Normal neuro exam. Not on blood thinners. Do not think there is a need for emergent imaging at this time. Patient is feeling better after migraine cocktail and IV fluids. Headache has resolved. Patient counseled on continued supportive care and need for close follow-up as well as concerning symptoms to return for. 1055 - Patient feeling better. Headache has resolved. Departure - Departure Disposition: 01 Home, Self Care Clinical Impression: Migraine Condition: Stable Instructions: ED Headache Migraine Follow-Up: [facility] [Provider Group] Comments: You were treated for a migraine headache today with a combination of medications and IV fluids. Please continue to rest and stay hydrated today. Please have close follow-up with your primary care provider regarding your migraines. Return to the ER if you have worsening symptoms. Forms: PCP List, Activity restrictions Discharge Date/Time: 03/07/23 11:18
[2023-03-07 11:20] VITALS: BP 98/60
== END 2023-03-07 11:18 | disposition home or self-care (01) ==
LOC: ED 09:18
DX: G43.909 Migraine, unspecified, not intractable, without status migrainosus (principal)
CPT/HCPCS: 96374; 96375; 99283; J1200; J2765

== ENCOUNTER 2023-07-20 10:44 | Emergency (ER) | payer OTHER ==
[2023-07-20 11:01] VITALS: O2SAT 100
--- NOTE | 2023-07-20 11:33 | XRAY Report ---
PROCEDURE: Chest 1V INDICATIONS: R chest pain TECHNIQUE: One view of the chest was acquired. COMPARISON: 05/05/2022. FINDINGS: Surgical changes and devices: None. Lungs and pleura: No pleural effusions or pneumothorax. Lungs are clear. Mediastinum: Mediastinal contours appear normal. Heart size is normal. Bones and chest wall: No suspicious bony lesions. Overlying soft tissues appear unremarkable. IMPRESSION: No acute cardiopulmonary process. Reviewed by: Tom Herron MD on 07/20/2023 11:31 AM PDT Approved by: Tom Herron MD on 07/20/2023 11:31 AM PDT Station ID: [id number]
--- NOTE | 2023-07-20 12:18 | ED Physician Documentation ---
History of Present Illness - Stated complaint Stated Complaint: CHEST MUSLE PX - Chief complaint Chief Complaint: General - History obtained from History obtained from: Patient - Additonal information Additional information: The patient comes to the emergency department chief complaint of right-sided chest pain for the last 3 weeks. She states that it all started after she did some pectoral flies at the gym and over the next couple days, developed soreness of the musculature along her right sternal border superiorly. She states that goes down about to her mid sternum and feels like a band along her right side of her sternum. She states that she has been taking ibuprofen and trying to stretch and massage the area but it just does not seem to be getting better. She states she was initially able to do all those things and lift things at work but now, after trying to go back to the gym and do some bicep curls, the whole area hurts and she cannot even put her purse over her shoulder. Patient denies shortness of breath or cough. No fevers or chills. She has not felt ill with anything. She states that the pain does not extend out toward her shoulder. No other complaints at this time. 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 - Present Medications Home Medications: Ambulatory Orders Medication Instructions Recorded Confirmed Propranolol [Inderal] 10 mg PO DAILY PRN 04/20/22 07/20/23 Sertraline [Zoloft] 25 mg PO DAILY 04/20/22 07/20/23 traZODone [Desyrel] 50 mg PO HS PRN 10/21/22 07/20/23 Cyclobenzaprine [Flexeril] 10 mg PO TID PRN #20 tablet 07/20/23 HYDROcod/ACETAM 5/325 [Shipman 5/325] 1 - 2 tablet PO Q6H PRN #7 tablet 07/20/23 predniSONE [Deltasone] 10 mg PO [id number] #42 tab 07/20/23 - Allergies Allergies/Adverse Reactions: Allergies Allergy/AdvReac Type Severity Reaction Status Date / Time strawberry Allergy Anaphylaxis Verified 07/20/23 11:28 - Social History Does the pt smoke?: No Smoking Status: Never smoker Does the pt drink ETOH?: Yes Does the pt have substance abuse?: No - Immunizations Immunizations are current?: Yes PD ED PE NORMAL - Vitals Vital signs reviewed: Yes - General General: Alert and oriented X 3, No acute distress, Well developed/nourished - HEENT HEENT: Atraumatic, PERRL, EOMI, Moist mucous membranes - Neck Neck: Supple, no meningeal sign - Cardiac Cardiac: RRR, No murmur - Respiratory Respiratory: No respiratory distress, Clear bilaterally - Derm Derm: Normal color, Warm and dry, No rash - Extremities Extremities: No deformity, No edema - Neuro Neuro: Other (Grossly intact) - Psych Psych: Normal mood, Normal affect - Free text exam Free text exam: Tenderness to palpation of parasternal musculature on the right over superior half of chest wall. No tenderness more laterally. No crepitus or bony deformity. Results - Vitals Vitals: Vital Signs - 24 hr 07/20/23 10:52 Temperature 36.2 C L Heart Rate 72 Respiratory 15 Rate Blood Pressure 113/64 O2 Saturation 100 Oxygen O2 Source Room air - Rads (name of study) Chest x-ray Relevant Findings:: Final report received, See rad report (Negative) PD Medical Decision Making - ED course Complexity details: reviewed results, re-evaluated patient, considered differential, d/w patient ED course: I discussed with the patient that her history and physical exam does indicate a likely muscular strain and it is probable that the ongoing physical activity in the area has exacerbated this. I will prescribe the patient prednisone, Flexeril, and a small allotment of hydrocodone. I have advised the patient to continue stretching and massaging but not to do any weighted exercises or activities with that side. We discussed the need for follow-up to discuss whether MRI and/or PT would be appropriate if this does not blow over on its own. We have discussed the usual indications for return. Departure - Departure Disposition: 01 Home, Self Care Clinical Impression: Chest wall muscle strain Qualifiers: Encounter type: initial encounter Qualified Code(s): S29.011A - Strain of muscle and tendon of front wall of thorax, initial encounter Condition: Stable Instructions: ED Chest Pain Atypical Unkn Cause Prescriptions: predniSONE [Deltasone] 10 mg PO [id number] #42 tab Cyclobenzaprine [Flexeril] 10 mg PO TID PRN #20 tablet PRN Reason: Spasms HYDROcod/ACETAM 5/325 [Shipman 5/325] 1 - 2 tablet PO Q6H PRN #7 tablet PRN Reason: Pain Comments: Your chest x-ray looks good. Your symptoms and physical exam findings, along with the history you have given, are most consistent with a chest wall muscle Strain. This may have been aggravated by ongoing physical activity at work and at the gym, even though you were not attempting to directly use this muscle group. For now, we will put you on a steroid taper and a muscle relaxer, as well as give you some pain medicine to have on hand as needed. You should continue to stretch and massage the area, but please avoid any weighted activities or activities with heavy resistance that involve your right arm, in order to avoid exacerbating the strain. Is also very important that you follow- up with your primary doctor, within the next 1 to 2 weeks if possible, to discuss MRI and physical therapy if the symptoms do not improve on their own. Most likely, they will improve on their own with symptomatic treatment. Your prescriptions have been electronically transmitted to the [facility] pharmacy in [place]. Forms: PCP List, Activity restrictions
[2023-07-20 12:37] VITALS: BP 113/62
== END 2023-07-20 12:36 | disposition home or self-care (01) ==
LOC: ED 10:44
DX: S29.011A Strain of muscle and tendon of front wall of thorax, initial encounter (principal); X58.XXXA Exposure to other specified factors, initial encounter
CPT/HCPCS: 99283

== ENCOUNTER 2023-08-15 16:48 | Emergency (ER) | payer OTHER ==
[2023-08-15 17:04] VITALS: BP 117/73; O2SAT 100
--- NOTE | 2023-08-15 17:13 | ED Physician Documentation ---
PD HPI MHE - Stated complaint Stated Complaint: SI - Chief complaint Chief Complaint: MHE - History obtained from History obtained from: Patient - History of Present Illness Primary symptom: Anxiety Recently seen: Not recently seen - Additional information Additional information: Patient is a 23-year-old female who presents to the emergency department stating that she "had anxiety today. She states that she has had vague suicidal ideation for the past several days. She is seeing a new psychiatrist and saw him today expressed the passive SI. She states she then went to work and told her command, her [employer] center here because of the passive SI. She states she does not want to harm herself but is okay if she "just does not wake up". Has never attempted suicide in the past. No new medications or medication changes. Nothing makes it better or worse. 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 : None HEENT: None Psych: None Musculoskeletal: None Derm: None - Past Surgical History Past Surgical History: Yes /PUNCH PRESS FEEDER: Breast reduction - Present Medications Home Medications: Ambulatory Orders Medication Instructions Recorded Confirmed Propranolol [Inderal] 10 mg PO DAILY PRN 04/20/22 08/15/23 Sertraline [Zoloft] 25 mg PO DAILY 04/20/22 08/15/23 traZODone [Desyrel] 50 mg PO HS PRN 10/21/22 08/15/23 QUEtiapine [SEROquel] 100 mg PO QPM #14 tablet 08/15/23 - Allergies Allergies/Adverse Reactions: Allergies Allergy/AdvReac Type Severity Reaction Status Date / Time strawberry Allergy Anaphylaxis Verified 08/15/23 16:59 - Social History Does the pt smoke?: No Smoking Status: Never smoker Does the pt drink ETOH?: Yes Does the pt have substance abuse?: No - Immunizations Immunizations are current?: Yes - POLST Patient has POLST: No PD ED PE NORMAL - Vitals Vital signs reviewed: Yes - General General: Alert and oriented X 3, No acute distress - HEENT HEENT: Moist mucous membranes - Neck Neck: Supple, no meningeal sign - Cardiac Cardiac: RRR - Respiratory Respiratory: No respiratory distress, Clear bilaterally - Abdomen Abdomen: Soft, Non tender, Non distended - Derm Derm: Warm and dry - Extremities Extremities: No edema - Neuro Neuro: Alert and oriented X 3, 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, No motor deficit, No sensory deficit, Normal speech - Psych Psych: Normal mood, Normal affect Results - Vitals Vitals: Vital Signs - 24 hr 08/15/23 16:59 Temperature 36.7 C Heart Rate 75 Respiratory 16 Rate Blood Pressure 117/73 O2 Saturation 100 Oxygen O2 Source Room air - Labs Labs: Laboratory Tests 08/15/23 08/15/23 08/15/23 10:30 16:40 17:11 WBC 6.2 RBC 4.46 Hgb 13.3 Hct 40.7 MCV 91.3 MCH 29.8 MCHC 32.7 RDW 14.3 Plt Count 306 MPV 10.2 Neut # (Auto) 4.6 Lymph # (Auto) 1.2 L Johnson # (Auto) 0.4 Eos # (Auto) 0.0 Baso # (Auto) 0.0 Absolute Nucleated RBC 0.00 Nucleated RBC % 0.0 Sodium Potassium Chloride Carbon Dioxide Anion Gap BUN Creatinine Estimated GFR (MDRD) Glucose Calcium Total Bilirubin AST ALT Alkaline Phosphatase Total Protein Albumin Globulin Albumin/Globulin Ratio Lipase TSH Urine Color Cancelled YELLOW Urine Clarity Cancelled HAZY Urine pH Cancelled 6.0 Ur Specific [place] Cancelled >=1.030 H Urine Protein Cancelled NEGATIVE Urine Glucose (UA) Cancelled NEGATIVE Urine Ketones Cancelled NEGATIVE Urine Occult Blood Cancelled TRACE-INTA Urine Nitrite Cancelled NEGATIVE Urine Bilirubin Cancelled NEGATIVE Urine Ictotest Cancelled Urine Urobilinogen Cancelled 0.2 (NORMAL) Ur Leukocyte Esterase Cancelled NEGATIVE Urine RBC Cancelled 0-5 Urine WBC Cancelled 0-3 Urine WBC Clumps Cancelled Ur Epithelial Cells Cancelled Ur Squamous Epith Cells Cancelled MOD Squamous H Urine Crystals Cancelled Amorphous Sediment Cancelled Urine Bacteria Cancelled Moderate H Urine Casts Cancelled Urine Starch Cancelled Urine Mucus Cancelled Urine Trichomonas Cancelled Urine Yeast Cancelled Urine Sperm Cancelled Ur Oval Fat Bodies Cancelled Ur Microscopic Review INDICATED Urine Culture Comments Cancelled NOT INDICATED Urine HCG, Qual NEGATIVE Salicylates Urine Opiates Screen NEGATIVE Ur Buprenorphine Scrn NEGATIVE Ur Oxycodone Screen NEGATIVE Urine Methadone Screen NEGATIVE Acetaminophen Ur Barbiturates Screen NEGATIVE Ur Tricyclics Screen NEGATIVE Ur Phencyclidine Scrn NEGATIVE Ur Amphetamine Screen NEGATIVE U Methamphetamines Scrn NEGATIVE U Benzodiazepines Scrn NEGATIVE Urine Cocaine Screen NEGATIVE U Cannabinoids Screen POSITIVE H Ur Drug Screen Comment CUTOFF CONC BELOW: Ethyl Alcohol 08/15/23 17:11 WBC RBC Hgb Hct MCV MCH MCHC RDW Plt Count MPV Neut # (Auto) Lymph # (Auto) Johnson # (Auto) Eos # (Auto) Baso # (Auto) Absolute Nucleated RBC Nucleated RBC % Sodium 139 Potassium 3.6 Chloride 105 Carbon Dioxide 28 Anion Gap 6.0 BUN 14 Creatinine 0.9 Estimated GFR (MDRD) 92 Glucose 90 Calcium 9.9 Total Bilirubin 0.3 AST 14 ALT 12 Alkaline Phosphatase 63 Total Protein 7.3 Albumin 4.6 Globulin 2.7 Albumin/Globulin Ratio 1.7 Lipase 40 TSH 0.84 Urine Color Urine Clarity Urine pH Ur Specific [place] Urine Protein Urine Glucose (UA) Urine Ketones Urine Occult Blood Urine Nitrite Urine Bilirubin Urine Ictotest Urine Urobilinogen Ur Leukocyte Esterase Urine RBC Urine WBC Urine WBC Clumps Ur Epithelial Cells Ur Squamous Epith Cells Urine Crystals Amorphous Sediment Urine Bacteria Urine Casts Urine Starch Urine Mucus Urine Trichomonas Urine Yeast Urine Sperm Ur Oval Fat Bodies Ur Microscopic Review Urine Culture Comments Urine HCG, Qual Salicylates < 1.5 Urine Opiates Screen Ur Buprenorphine Scrn Ur Oxycodone Screen Urine Methadone Screen Acetaminophen 0.3 Ur Barbiturates Screen Ur Tricyclics Screen Ur Phencyclidine Scrn Ur Amphetamine Screen U Methamphetamines Scrn U Benzodiazepines Scrn Urine Cocaine Screen U Cannabinoids Screen Ur Drug Screen Comment Ethyl Alcohol < 10.0 PD Medical Decision Making - ED course Complexity details: reviewed results, re-evaluated patient, considered differential, d/w patient, 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 No significant lab abnormalities. Urine drug screen is positive for cannabis. She is active [employer]. Telepsychiatry was consulted. She is able to contract for safety. Telepsychiatry recommends starting Seroquel at night, a prescription was given for this. They also recommend changing her to dayshift if possible. This will be included on her discharge instructions. Patient is forward thinking, goal oriented. Denies feeling suicidal currently. Is able to safety plan. Patient counseled regarding signs and symptoms for which I believe and urgent re- evaluation would be necessary. Patient with good understanding of and agreement to plan and is comfortable going home at this time This document was made in part using voice recognition software. While efforts are made to proofread this document, sound alike and grammatical errors may occur. Departure - Departure Disposition: Home, Self Care Clinical Impression: Anxiety Depression Qualifiers: Depression Type: unspecified Qualified Code(s): F32.A - Depression, unspecified Condition: Good Instructions: ED Depression Follow-Up: [facility]UNC[facility] Gloria [Provider Group] - Within 1 week Prescriptions: QUEtiapine [SEROquel] 100 mg PO QPM #14 tablet Comments: Psychiatry has recommended that you be placed on a daytime work shift to help with your mental health. We will also start you on Seroquel 100 mg at night, this was sent to [facility]. Please follow-up with your doctor this week to have another prescription for this. If you are having any thoughts that you do not want to live, thoughts of hurting yourself, or thoughts of hurting anyone else, please call 911, the crisis line at [phone], or go to your nearest emergency department. Crisis Line and is available to talk to someone [email or web address] is also available to chat with someone online if you prefer. There are also many resources on this website and apps for your phone to help with your mental health You can also text the word START to [phone] to chat with someome via text. Forms: PCP List Discharge Date/Time: 08/15/23 21:49
[2023-08-15 17:24] LABS: BASOPHILS % (AUTO) 0.3 %; EOSINOPHILS % (AUTO) 0.5 %; HCT - HEMATOCRIT 40.7 % (37.0-47.0); HGB - HEMOGLOBIN 13.3 g/dL (12.0-16.0); LYMPHOCYTES # (AUTO) 1.2 10^3/uL (1.5-3.5); LYMPHOCYTES % (AUTO) 18.8 %; MEAN CORPUSCULAR HEMOGLOBIN 29.8 pg (27.0-31.0); MEAN CORPUSCULAR HGB CONC 32.7 g/dL (32.0-36.0); MEAN CORPUSCULAR VOLUME 91.3 fL (81.0-99.0); MEAN PLATELET VOLUME 10.2 fL (7.9-10.8); MONOCYTES # (AUTO) 0.4 10^3/uL (0.0-1.0); MONOCYTES % (AUTO) 6.6 %; NEUTROPHILS # (AUTO) 4.6 10^3/uL (1.5-6.6); NEUTROPHILS % (AUTO) 73.6 %; PLT - PLATELET COUNT 306 10^3/uL (130-450); RED BLOOD COUNT 4.46 10^6/uL (4.20-5.40); RED CELL DISTRIBUTION WIDTH 14.3 % (12.0-15.0); WHITE BLOOD COUNT 6.2 x10^3/uL (4.8-10.8)
[2023-08-15 17:24] LABS: BILIRUBIN,URINE NEGATIVE (NEGATIVE); GLUCOSE, URINE (UA) NEGATIVE (NEGATIVE); KETONES,URINE (UA) NEGATIVE (NEGATIVE); LEUKOCYTE ESTERASE, URINE NEGATIVE (NEGATIVE); NITRITE,URINE NEGATIVE (NEGATIVE); OCCULT BLOOD,URINE TRACE-INTA (NEGATIVE); PROTEIN,URINE NEGATIVE (NEGATIVE); UROBILINOGEN,URINE 0.2 (NORMAL) E.U./dL (NORMAL)
[2023-08-15 17:28] LABS: CLARITY,URINE HAZY (CLEAR); HCG UR QUAL NEGATIVE
[2023-08-15 17:31] LABS: BACTERIA,URINE Moderate /HPF (None Seen); RBC,URINE 0-5 /HPF (0-5); SQUAMOUS EPITHELIAL CELL,UR MOD Squamous (<= Few); WBC,URINE 0-3 /HPF (0-5)
[2023-08-15 17:36] LABS: AMPHETAMINE SCREEN,URINE NEGATIVE (NEGATIVE); BARBITURATE SCREEN,UR NEGATIVE (NEGATIVE); BENZODIAZEPINES SCREEN, URINE NEGATIVE (NEGATIVE); BUPRENORPHINE SCREEN, URINE NEGATIVE (NEGATIVE); COCAINE SCREEN URINE NEGATIVE (NEGATIVE); METHADONE SCREEN, URINE NEGATIVE (NEGATIVE); METHAMPHETAMINES SCREEN, URINE NEGATIVE (NEGATIVE); OPIATE SCREEN, URINE NEGATIVE (NEGATIVE); OXYCODONE SCREEN, URINE NEGATIVE (NEGATIVE); THC CANNABINOID SCREEN, URINE POSITIVE (NEGATIVE); TRICYCLIC ANTIDEPRESSANT,URINE NEGATIVE (NEGATIVE)
[2023-08-15 18:00] LABS: ACETAMINOPHEN 0.3 ug/mL; ALBUMIN 4.6 g/dL (3.2-5.5); ALBUMIN/GLOBULIN RATIO 1.7 (1.0-2.2); ALKALINE PHOSPHATASE 63 IU/L (42-121); ALT ALANINE AMINOTRANSFERASE 12 IU/L (10-60); AST ASPARTATE AMINOTRANSFERASE 14 IU/L (10-42); BILIRUBIN,TOTAL 0.3 mg/dL (0.2-1.0); BUN - BLOOD UREA NITROGEN 14 mg/dL (6-20); CALCIUM 9.9 mg/dL (8.5-10.3); CARBON DIOXIDE - CO2 28 mmol/L (21-32); CHLORIDE 105 mmol/L (101-111); CREATININE 0.9 mg/dL (0.6-1.3); ETOH - ETHANOL < 10.0 mg/dL; GFR - MDRD 92 (>89); GLUCOSE 90 mg/dL (74-104); LIPASE 40 U/L (11-82); POTASSIUM 3.6 mmol/L (3.5-4.5); SODIUM 139 mmol/L (135-145); TOTAL PROTEIN 7.3 g/dL (6.4-8.9)
[2023-08-15 18:02] LABS: THYROID STIMULATING HORMONE 0.84 uIU/mL (0.34-5.60)
[2023-08-15 18:03] LABS: SALICYLATE < 1.5 mg/dL
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
[2023-08-15] MEDS: IBUPROFEN 600 MG TABLET PO STA (21:03)
== END 2023-08-15 21:49 | disposition home or self-care (01) ==
LOC: ED 16:48
DX: F41.9 Anxiety disorder, unspecified (principal); F32.A Depression, unspecified; R45.851 Suicidal ideations; Z79.899 Other long term (current) drug therapy
CPT/HCPCS: 36415; 80053; 80143; 80179; 80306; 81001; 81025; 82077; 83690; 84443; 85025; 90834; 99282; 99283; A9270; Q3014; 81003; 87086